=== PATIENT | female | born 1980 | race Hispanic/Latino ===

== ENCOUNTER 2018-03-13 08:41 | Day surgery (SDC) | payer OTHER ==
[2018-03-10 12:22] LABS: Absolute Lymphocytes (CBC) 3.1 K/uL (0.7-4.9); Absolute Monocytes 0.6 K/uL (0.1-1.3); Absolute Neutrophil 3.4 K/uL (1.8-8.0); Basophils % 0.2 % (0-1.3); Eosinophils % 3.1 % (0-4.4); Hematocrit 39.6 % (36.0-45.0); Lymphocytes % 41.9 % (15.3-44.8); MCH 31.6 pg (27.0-35.0); MCV 90.1 fL (80-100); MPV 9.1 fL (7.6-11.3); Monocytes % 8.4 % (3.3-12.3); RBC Red Blood Cell Count 4.39 M/uL (3.86-4.86)
[2018-03-13 09:02] LABS: Specific Gravity 1.015 (1.005-1.030)
[2018-03-13] MEDS ORDERED: Ringers Lactate 1,000 ML IV ONE (09:08)
[2018-03-13] MEDS ORDERED: CEFAZOLIN/SWI 1gm 1 GM/10 ML SYR ONE (09:08)
[2018-03-13] MEDS ORDERED: MIDAZOLAM HCL 2 MG/2 ML INJ ONE (09:37)
[2018-03-13] MEDS ORDERED: FENTANYL CITR 100 MCG/2 ML ONE (09:37)
[2018-03-13] MEDS ORDERED: PROPOFOL 200 MG/20 ML VIAL IV ONE (09:37)
[2018-03-13] MEDS ORDERED: ONDANSETRON HCL 40 MG/20 ML VIAL ONE (09:38)
[2018-03-13] MEDS ORDERED: ROCURONIUM 50 MG/5 ML VIAL IV ONE (09:38)
[2018-03-13] MEDS ORDERED: LIDOCAINE 2% MPF 5 ML VIAL ONE (09:38)
[2018-03-13] MEDS ORDERED: NEOSTIGMINE 1 MG/ML -5 ML SYRINGE ONE (10:30)
[2018-03-13] MEDS ORDERED: GLYCOPYRROLATE 0.2 MG/ML SYR ONE (10:30)
[2018-03-13] MEDS: MEPERIDINE HCL 50 MG/ML AMP ONE ×4 (11:02→11:42)
[2018-03-13] MEDS ORDERED: KETOROLAC 30 MG/ML INJ ONE (11:05)
[2018-03-13] MEDS ORDERED: MORPHINE 4 MG/ML SYR ONE (11:32)
[2018-03-13] MEDS ORDERED: HYDROCODONE/APAP 7.5/325 MG TAB ONE (12:31)
--- NOTE | 2018-03-13 22:09 | OP ---
Date of Procedure: 03/13/2018 Surgeon: Gene Pool MD Preoperative Diagnosis: Ventral hernia. Postoperative Diagnosis: Ventral hernia. Procedure: Laparoscopic-assisted repair of ventral hernia. Estimated Blood Loss: Minimal. Specimen: Hernia sac. Findings: As above. Anesthesia: General. Complications: None. Disposition: The patient tolerated the procedure in stable condition and was taken to recovery room in good general condition. Operative Note: The patient was brought to the OR and placed in supine position. General anesthesia was begun. The patient was prepped and draped in usual sterile fashion. Marcaine 0.5% was infiltra peng locally. A 15 blade used to make a 1 cm left upper quadrant incision. Subcutaneous tissues were divided. Fascia was identified and divided. A #1 Vicryl stay suture was placed. Peritoneal cavity was entered with blunt dissection. A 12-mm trocar was placed into the peritoneal cavity under direc t vision. Pneumoperitoneum was established. A 5-mm trocar was placed in the left lower quadrant. L aparoscopy revealed the ventral hernia approximately 4 cm in diameter. A midline ventral incision wa s made. Subcutaneous tissue divided. Hernia sac identified, and the hernia sac excised and sent to Pathology as specimen. A 4 cm defect remained which was primarily closed with #1 PDS subcutaneous ti ssue and bleeding controlled with cautery. A 3-0 chromic used to approximate the subcutaneous tissue and pushpa used to close the skin. Then, pneumoperitoneum reestablished and then a balloon system Bard mesh was placed 6 x 4 inches and then inflated and then secured with AbsorbaTack tacker. Comple te coverage of the hernia sac accomplished. No evidence of bleeding or bowel injury appreciated. Th e balloon component removed intact. All trocars were removed under direct vision. Stay sutures were tied to each other to reapproximate the fascial defect. Subcutaneous wounds were irrigated. Bleedi ng controlled with cautery. A 3-0 chromic was used to approximate the subcutaneous tissue. Pushpa were used to close the skin. Sterile dressing was applied. The patient was awakened and taken to re covery room in good general condition. Discharge Note: The patient will go to Day Surgery and home when stable. Disposition: Home. Condition: Stable. Discharge Instructions: Resume home medications and diet. Activity as tolerated. No heavy lifting. Remove outer dressing in 2 days. Shower. Keep wound clean and dry. Follow up in my office in a josef fine. Call for appointment. Tylenol No.3 one tablet p.o. q.4 p.r.n. pain. Abdominal binder, incenti ve spirometry as ordered. /MODL Voice ID: [id number] Report ID: [id number]
== END 2018-03-13 13:50 | disposition home or self-care (01) ==
LOC: OR 08:41
PROVIDERS: ATTEND Surgery
PROC: 0WUF0JZ Supplement Abdominal Wall with Synthetic Substitute, Open Approach (ICD-10-PCS; principal; 2018-03-13 10:00)
DX: K43.9 Ventral hernia without obstruction or gangrene (principal); Z80.1 Family history of malignant neoplasm of trachea, bronchus and lung
CPT/HCPCS: 36415; 81025; 85025; 88302; J0690; J2175; J2250; J2405; J2710; J3010